=== PATIENT | female | born 1960 | race Caucasian/White ===

== ENCOUNTER 2024-04-03 14:01 | Outpatient (CLI) | payer MEDICARE, SELFPAY ==
--- NOTE | 2024-04-03 14:06 | MM_ITS ---
WS: [id number] BILATERAL SCREENING DIGITAL TOMOSYNTHESIS MAMMOGRAM WITH CAD HISTORY: SCREENING COMPARISON: 08/24/2010 Bilateral CC and MLO views with tomosynthesis and synthetic mammography submitted. Computer aided det ection analyzed. Breast composition: The breasts are almost entirely fatty. No suspicious masses, microcalcifications or architectural distortion. Benign calcifications. MM/[place] [id number] IMPRESSION: BI-RADS: 2-Benign FOLLOW UP: 1 Year Follow-up
== END 2024-04-03 14:02 | disposition home or self-care (01) ==
LOC: RAD 14:01
PROVIDERS: PCP Physician Assistant; Visit Provider Physician Assistant
DX: Z12.31 Encounter for screening mammogram for malignant neoplasm of breast (principal)
CPT/HCPCS: 77063; 77067

== ENCOUNTER 2025-09-24 12:42 | Outpatient (CLI) | payer MEDICARE, SELFPAY ==
--- NOTE | 2025-09-24 12:47 | MM_ITS ---
WS: [id number] VIEWS: MLO and CC views both breasts. 3D digital tomosynthesis is also included in this exam. Comparison made with prior exam of 08/24/2010 and 04/03/2024. Findings: There are scattered areas of fibroglandular density. Questionable new 4 mm nodular density noted in the medial inferior RIGHT breast at about the 4 o'clock position at mid depth level. This is seen only on the cc view. Compression spot views with tomography as well as a 90 degree lateral view of the RIGHT breast would be suggested for follow-up. Also regional ultrasound may be necessary. The LEFT breast is unremarkable. MM/MM scr BI tomosynthesis [id number] Impression: BI-RADS: 0 - Incomplete: Need additional imaging evaluation. FOLLOW-UP: See Report This mammogram was also analyzed by the Computer Aided Detection System R[employer].
--- NOTE | 2025-09-24 12:54 | XR_ITS ---
WS: [id number] DEXA (DUAL ENERGY X-RAY ABSORPTIOMETRY) Bone mineral density was performed using a [employer] machine. HISTORY: ASYMPTOMATIC MENOPAUSAL STATE COMPARISON: None available. Lumbar spine BMD (L1-L4): 0.998 g/cm2 T score: -1.5 Z score: -1.1 Total hip BMD: Left: 0.940 g/cm2. T score: -0.5 Z score: -0.1 Right: 0.883 g/cm2. T score: -1.0 Z score: -0.5 10 year probability of a major osteoporotic fracture is 14.2%. XR/XR DEXA axial skeleton* [id number] IMPRESSION: OSTEOPENIA based upon the WHO classification for females.
== END 2025-09-24 12:43 | disposition home or self-care (01) ==
LOC: RAD 12:42
PROVIDERS: PCP Physician Assistant; Visit Provider Physician Assistant
DX: Z12.31 Encounter for screening mammogram for malignant neoplasm of breast (principal); Z78.0 Asymptomatic menopausal state; R92.323 Mammographic fibroglandular density, bilateral breasts; N63.14 Unspecified lump in the right breast, lower inner quadrant; M85.88 Other specified disorders of bone density and structure, other site
CPT/HCPCS: 77063; 77067; 77080

== ENCOUNTER 2025-10-07 13:28 | Outpatient (CLI) | payer MEDICARE, SELFPAY ==
--- NOTE | 2025-10-07 13:39 | MM_ITS ---
WS: [id number] Right breast diagnostic 3D tomosynthesis digital mammogram, 10/07/2025 Clinical Data: ABNORMAL MAMMOGRAM Comparison: 09/24/2025, 04/03/2024, 08/24/2010. Findings: The small density seen in the medial inferior right breast is no longer present. There are no spiculated masses nor clustered calcifications. Only normal breast tissue is seen. MM/MM diag RT tomosynthesis [id number] Impression: 1. Negative right breast mammogram. 2. Recommend return to annual screening mammograms. DENSITY: The breasts are almost entirely fatty. BIRADS: 1 - Negative. FOLLOW UP: 1 Year Follow-up The CAD typing checker was used.
== END 2025-10-07 13:29 | disposition home or self-care (01) ==
LOC: RAD 13:31
PROVIDERS: PCP Physician Assistant; Visit Provider Physician Assistant
DX: Z12.31 Encounter for screening mammogram for malignant neoplasm of breast (principal); R92.313 Mammographic fatty tissue density, bilateral breasts
CPT/HCPCS: 77061; G0279